=== PATIENT | male | born 1965 | race Caucasian/White ===

== ENCOUNTER 2019-06-11 22:42 | Emergency (ER) | payer MEDICARE ==
[~2019-06-11] VITALS: Ht 182.9 cm; Wt 81.6 kg
[2019-06-11 22:45] VITALS: Ht 182.9 cm; Wt 81.6 kg
[2019-06-11] MEDS ORDERED: MOBIC7.5 MG PO (22:46)
[2019-06-11] MEDS ORDERED: PRAVACHOL40 MG (22:46)
[2019-06-11] MEDS ORDERED: OMEPRAZOLE20 M1 PO (22:46)
[2019-06-11] MEDS ORDERED: CLARITIN 10 MG10 MG PO (22:48)
[2019-06-12 00:49] LABS: BASOPHILS 0.2 % (0-2); EOSINOPHILS 3.4 % (0-7); HEMATOCRIT 45.5 % (42.0-54.0); HEMOGLOBIN 15.9 g/dL (13.5-17.5); IMMATURE GRANULOCYTES 0.3 % (0-5); LYMPHOCYTES 16.1 % (15-50); MCH 30.4 pg (26.0-34.0); MCHC 34.9 g/dL (31.0-37.0); MEAN PLATELET VOLUME 11.3 fL (7.4-10.4); MONOCYTES 6.5 % (2-11); NEUTROPHILS 73.5 % (40-80); PLATELET COUNT 213 10x3/uL (130-400); RBC 5.23 10x6/uL (4.20-6.10); RDW 12.6 % (11.5-14.5)
[2019-06-12 00:59] LABS: INR 0.93 (0.85-1.17)
[2019-06-12 01:08] LABS: ALBUMIN 3.8 g/dL (3.4-5.0); ALKALINE PHOSPHATASE 64 U/L (46-116); ALT (SGPT) 47 U/L (10-68); BILIRUBIN - TOTAL 0.51 mg/dL (0.2-1.3); CALC OSMOLALITY 281 mosm/kg (275-300); CALCIUM 8.9 mg/dL (8.5-10.1); CARBON DIOXIDE 28.2 mmol/L (21.0-32.0); CHLORIDE - SERUM 104 mmol/L (98-107); POTASSIUM - SERUM 4.5 mmol/L (3.5-5.1); SODIUM 140 mmol/L (136-145); UREA NITROGEN 10 mg/dL (7-18); eGFR NON AFRICAN AMERICAN 82 mL/min (90-120)
[2019-06-12 01:09] LABS: GLUCOSE 164 mg/dL (74-106)
[2019-06-12 01:59] VITALS: BP 138/79
== END 2019-06-12 02:16 | disposition other institution (70) ==
LOC: D.ER 22:42
PROVIDERS: Family Medicine
DX: K22.2 Esophageal obstruction (principal)